=== PATIENT | male | born 2000 | race Caucasian/White ===

== ENCOUNTER 2021-08-16 19:21 | Emergency (ER) | payer OTHER ==
[2021-08-16 20:57] LABS: RED BLOOD COUNT 5.6 M/UL (4.20-5.50); WHITE BLOOD COUNT 13.3 K/UL (4.5-11.0)
[2021-08-16 21:26] LABS: BUN/CREATININE RATIO 16 (0-10)
== END 2021-08-17 01:15 | disposition home or self-care (01) ==
LOC: ER1 19:21
PROVIDERS: Physician Assistant
DX: R07.89 Other chest pain (principal)
CPT/HCPCS: 71045; 80053; 82550; 82553; 84484; 85025; 93005; 99285